=== PATIENT | female | born 2000 | race Two or more races ===

== ENCOUNTER → 2019-11-06 | Outpatient (CLI) | payer OTHER ==
[~2019-11-06] MED LIST: PRENATAL + DHA1 EAC1; TUSNEL LIQUID178 ML PO; ZITHROMAX500 MG PO
== END | disposition home or self-care (01) ==
LOC: PRENATAL 15:00
DX: O28.1 Abnormal biochemical finding on antenatal screening of mother (principal); O99.210 Obesity complicating pregnancy, unspecified trimester; O99.89 Other specified diseases and conditions complicating pregnancy, childbirth and the puerperium; O35.3XX0 Maternal care for (suspected) damage to fetus from viral disease in mother, not applicable or unspecified; Z3A.20 20 weeks gestation of pregnancy

== ENCOUNTER → 2019-11-19 | Emergency (ER) | payer OTHER ==
[~2019-11-19] VITALS: Ht 152.4 cm; Wt 81.2 kg
== END | disposition left against medical advice (07) ==
LOC: ER 21:11
DX: Z53.20 Procedure and treatment not carried out because of patient's decision for unspecified reasons (principal)

== ENCOUNTER 2019-11-20 13:50 | Emergency (ER) | payer OTHER ==
[~2019-11-20] VITALS: Ht 152.4 cm; Wt 81.2 kg
[~2019-11-20 13:50] MED LIST changes: -TUSNEL LIQUID178 ML PO; -ZITHROMAX500 MG PO
[2019-11-20] MEDS ORDERED: ZITHROMAX500 MG PO (18:33)
[2019-11-20] MEDS ORDERED: TUSNEL LIQUID178 ML PO (18:33)
== END 2019-11-20 18:49 | disposition home or self-care (01) ==
LOC: ER 13:50
DX: B34.9 Viral infection, unspecified (principal)

== ENCOUNTER 2020-03-24 18:58 | Inpatient (IN) | payer OTHER ==
[~2020-03-24] VITALS: Ht 152.4 cm; Wt 3.2 kg
[~2020-03-24 18:58] MED LIST changes: +TUSNEL LIQUID178 ML PO; +ZITHROMAX500 MG PO
[2020-03-24] MEDS ORDERED: AMOX1TAB5 PO (21:25)
[2020-03-28] MEDS ORDERED: SIMETHICONE125 M1 PO (11:53)
[2020-03-28] MEDS ORDERED: PRENATAL + DHA1 EAC1 PO (11:53)
[2020-03-28] MEDS ORDERED: SENOKOT8.6 M1 PO (11:53)
[2020-03-28] MEDS ORDERED: IBUPROFEN800 MG PO (11:53)
== END 2020-03-28 16:05 | disposition home or self-care (01) | DRG 788 ==
LOC: OBS/DEL 18:58 → OB/GYN 21:11 → LDR 21:11 → OBS/DEL 21:11 → OB/GYN 03-25 10:43 → O/R 03-25 12:19 → OB/GYN 03-25 12:20
PROVIDERS: ADMIT Obstetrics & Gynecology; ATTEND Obstetrics & Gynecology
PROC: 3E0P7VZ Introduction of Hormone into Female Reproductive, Via Natural or Artificial Opening (ICD-10-PCS; 2020-03-24)
PROC: 3E033VJ Introduction of Other Hormone into Peripheral Vein, Percutaneous Approach (ICD-10-PCS; 2020-03-24)
PROC: 4A1HXCZ Monitoring of Products of Conception, Cardiac Rate, External Approach (ICD-10-PCS; 2020-03-24)
PROC: 10D00Z1 Extraction of Products of Conception, Low, Open Approach (ICD-10-PCS; principal; 2020-03-25 07:00)
DX: O61.0 Failed medical induction of labor (principal); Z3A.40 40 weeks gestation of pregnancy; Z37.0 Single live birth

== ENCOUNTER 2020-04-05 23:13 | Emergency (ER) | payer OTHER ==
[~2020-04-05] VITALS: Ht 152.4 cm; Wt 88.9 kg
[~2020-04-05 23:13] MED LIST changes: +AMOX1TAB5 PO; +IBUPROFEN800 MG PO; +PRENATAL + DHA1 EAC1 PO; +SENOKOT8.6 M1 PO; +SIMETHICONE125 M1 PO
[2020-04-06] MEDS ORDERED: CEFADROXIL500 MG PO (02:02)
== END 2020-04-06 02:17 | disposition home or self-care (01) ==
LOC: ER 23:13
DX: T81.49XA Infection following a procedure, other surgical site, initial encounter (principal)